=== PATIENT | male | born 1945 | race Caucasian/White ===

== ENCOUNTER 2019-12-08 16:32 | Emergency (ER) | payer OTHER ==
[~2019-12-08] VITALS: Ht 182.9 cm; Wt 136.1 kg
[2019-12-08 17:55] LABS: Hematocrit 41.4 % (41.0-53.0); Hemoglobin 14.1 g/dL (13.5-17.5); Mean Corpuscular Hemoglobin 29.7 pg (28.0-32.0); Mean Corpuscular Hgb Conc. 33.9 g/dL (32.0-36.0); Mean Corpuscular Volume 87.6 fL (80.0-100.0); Platelet Count (auto) 133 10^3/uL (140-450); Red Blood Cells 4.73 10^6/uL (4.5-5.90); Red Cell Distribution Width 15.2 % (11.8-14.3); White Blood Cell 9.4 10^3/uL (4.4-10.8)
[2019-12-08 17:58] LABS: Basophils % (manual) 0 (0.0-2.0); Blast Cells 0; Eosinophils % (manual) 0 (0-7); Metamyelocytes % 0; Myelocytes % 0; Promyelocytes % 0; Reactive Lymphocytes 0
[2019-12-08 18:08] LABS: Albumin 3.4 g/dL (3.4-5.0); Calcium 8.7 mg/dL (8.5-10.1); Potassium 3.9 mmol/L (3.5-5.1)
[2019-12-08 18:14] LABS: BUN/Creatinine Ratio 15.8; Bilirubin, Total 0.8 mg/dL (0.2-1.0); Total Protein 6.8 g/dL (6.4-8.2)
[2019-12-08 18:18] LABS: Band Neutrophils % (manual) 3; Lymphocytes % (manual) 6 (10.0-50.0); Monocytes % (manual) 7 (0-12)
[2019-12-08 19:00] LABS: Urine Bacteria NONE SEEN /hpf (None Seen); Urine Blood TRACE /uL (Negative); Urine WBC 2 /hpf (0 - 3)
[2019-12-08] MEDS ORDERED: IPRATROPIUM BROM 0.5 MG/2.5ML INH SOL NEB ONE (19:30)
[2019-12-08] MEDS ORDERED: SODIUM CHLORIDE 0.9% 1,000 ML IV ONE (19:30)
[2019-12-08] MEDS ORDERED: ALBUTEROL SULF 2.5 MG/0.5ML(0.5%) NEB SOLN NEB ONE (19:30)
[2019-12-08] MEDS ORDERED: methylPREDNISolone SOD SUCC 125 MG/2 ML VL IV ONE (19:30)
[2019-12-08] MEDS ORDERED: levoFLOXacin 750MG 150 ML IV ONE (19:30)
[2019-12-08 21:10] VITALS: BP 140/80
== END 2019-12-08 21:47 | disposition home or self-care (01) ==
LOC: EDBD 16:32 → ER 16:32
DX: J06.9 Acute upper respiratory infection, unspecified (principal); J44.9 Chronic obstructive pulmonary disease, unspecified; E11.9 Type 2 diabetes mellitus without complications; I10 Essential (primary) hypertension
CPT/HCPCS: 36415; 71045; 80053; 81001; 83880; 84484; 85007; 85027; 93005; 94640; 99285; J7644

== ENCOUNTER → 2020-03-17 | Emergency (ER) | payer OTHER ==
[~2020-03-17] VITALS: Ht 188 cm; Wt 122.5 kg
[~2020-03-17] MED LIST: EPINEPHrine HCL 1 MG/10 ML SYRG IV ONE; SODIUM BICARBONATE 8.4% INJ 50ML SYRINGE IV ONE; SODIUM BICARBONATE 8.4% INJ 50ML SYRINGE ONE
== END | disposition home or self-care (01) ==
LOC: EDUNIT# 16:56 → EDBD 17:01 → ER 17:01
DX: I46.9 Cardiac arrest, cause unspecified (principal); J44.9 Chronic obstructive pulmonary disease, unspecified; E11.9 Type 2 diabetes mellitus without complications; I10 Essential (primary) hypertension
CPT/HCPCS: 31500; 92950; 99291; J0171; 94002